=== PATIENT | female | born 1985 | race Caucasian/White ===

== ENCOUNTER 2016-08-10 13:37 | Emergency (ER) | payer OTHER ==
[~2016-08-10] VITALS: Ht 175.3 cm; Wt 63.6 kg
[2016-08-10 13:39] VITALS: Ht 175.3 cm; Wt 63.6 kg
[2016-08-10] MEDS ORDERED: LORAZEPAM 0.5 MG TAB PO ONE (17:00)
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
--- NOTE | 2016-08-10 18:41 | RADRPT ---
PROCEDURE: Facial bone series CLINICAL INDICATION: Injury, pain TECHNIQUE: March, lateral, and Rhese views were obtained COMPARISON: none FINDINGS: The osseous structures are unremarkable. No fractures are seen. No sinus air-fluid collection is see n. There is no evidence of temporomandibular joint dislocation. IMPRESSION: No plain film evidence for displaced orbital fracture is identified. RPTAT: DD .Fly Lam MD, MD Date Time Electronically viewed and signed by .Fly Lam MD, on 08/10/2016 18:40 .T/
--- NOTE | 2016-08-10 18:42 | RADRPT ---
PROCEDURE: XR Forearm. CLINICAL INDICATION: injury r/o fracture or dislocation TECHNIQUE: AP and lateral views of the right forearm were obtained. COMPARISON: No prior studies are available for comparison. FINDINGS: There is normal mineralization and alignment. No fracture or osseous lesion is identified. There are normal joints without evidence of arthritis or effusion. The soft tissues are unremarkable. IMPRESSION: Unremarkable right forearm. No visualized fracture or dislocation. RPTAT: DD .Fly Lam MD, MD Date Time Electronically viewed and signed by .Fly Lam MD, on 08/10/2016 18:42 .T/
[2016-08-10 20:31] VITALS: BP 113/79; PULSE 76; RESP 18; TEMP 97.1
== END 2016-08-10 20:32 | disposition home or self-care (01) ==
LOC: FTE 13:37
DX: S59.911A Unspecified injury of right forearm, initial encounter (principal); Y04.8XXA Assault by other bodily force, initial encounter
CPT/HCPCS: 70200; 73090; Z7610